=== PATIENT | female | born 1945 | race Caucasian/White ===

== ENCOUNTER → 2016-10-11 | Outpatient (REF) | payer MEDICARE, BC ==
[2016-10-11 14:35] LABS: URIC ACID 2.7 MG/DL (2.6-6.0)
[2016-10-11 14:42] LABS: MEAN CORPUSCULAR HEMOGLOBIN 31.6 pg (27.0-33.0); MEAN CORPUSCULAR HGB CONC 32.6 g/dl (32.0-36.5); RED CELL DISTRIBUTION WIDTH 13.1 % (11.5-14.5); WHITE BLOOD COUNT 4.8 K/mm3 (4.0-10.0)
[2016-10-11 15:01] LABS: BASOPHILS 1 % (0-4); EOSINOPHILS 4 % (0-5)
[2016-10-11 15:29] LABS: ERYTHROCYTE SEDIMENTATION RATE 8 mm/hr (0-30)
[2016-10-13 00:07] LABS: Lyme Disease IgG/IgM Antibodie <0.91 ISR (0.00-0.90); Lyme Disease IgM Ab Quantitati <0.80 index (0.00-0.79); SJOGREN'S ANTI SS-A <0.2 AI (0.0-0.9); SJOGREN'S ANTI SS-B 2.3 AI (0.0-0.9)
== END ==
LOC: M LABDRAW1 13:46
PROVIDERS: ATTEND Physician Assistant Surgical
DX: M19.042 Primary osteoarthritis, left hand (principal); Z79.899 Other long term (current) drug therapy

== ENCOUNTER → 2020-09-20 | Outpatient (CLI) | payer MEDICARE, BC ==
--- NOTE | 2020-09-20 09:31 | REP ---
INDICATION: PAIN. COMPARISON: None. TECHNIQUE: Standing bilateral AP examination of the knees with three views of the right knee FINDINGS: There is minimal tricompartmental marginal osteophytosis with standing bilateral AP view showing mild medial compartmental narrowing. There is no toribio subchondral sclerosis. There is no fracture, dislocation, or subluxation. IMPRESSION: Early degenerative changes as described above. <Electronically signed by [place] > 09/20/20 0913
== END ==
LOC: M SOG 09:01
PROVIDERS: ATTEND Orthopaedic Surgery Adult Reconstructive Orthopaedic Surgery
DX: M25.561 Pain in right knee (principal); M17.0 Bilateral primary osteoarthritis of knee

== ENCOUNTER → 2020-12-14 | Outpatient (CLI) | payer MEDICARE, BC ==
--- NOTE | 2020-12-14 14:47 | REP ---
INDICATION: RT LETITIA PAIN UNSPEC INTERNAL DERANGEMENT. COMPARISON: None. TECHNIQUE: Sagittal spin-echo proton density, T2 STIR and T2 FLASH. Coronal spin-echo proton density and fat suppressed proton density. Axial fat suppressed proton density. FINDINGS: The anterior and posterior horns of the medial meniscus are within normal limits. Mild grade 1 signal changes are present. The anterior and posterior horns of the lateral meniscus are within normal limits. Grade 2 signal changes seen along the periphery anterior to posterior. The anterior and posterior cruciate ligaments are intact. The quadriceps and patellar tendons are intact. The medial and lateral collateral ligaments are intact. The medial and lateral patellar retinacula are intact. There is thinning and irregularity of all articular cartilages. Seen between the tendons of the medial head of the gastrocnemius muscle and the semimembranosus tendon there is an 8.9 by 1.4 by 3 cm sized septated fluid collection. IMPRESSION: 1. Degenerative type meniscal signal changes seen as described above. There is a possible subtle peripheral interstitial substance tear in the lateral meniscus as described above. 2. Large somewhat complex Young's cyst as described above. 3. Tricompartmental chondromalacia <Electronically signed by [place] > 12/14/20 [id number]
== END ==
LOC: M PLAIMG 13:24
PROVIDERS: ATTEND Orthopaedic Surgery Adult Reconstructive Orthopaedic Surgery
DX: M23.91 Unspecified internal derangement of right knee (principal); M71.21 Synovial cyst of popliteal space [Baker], right knee; M94.261 Chondromalacia, right knee

== ENCOUNTER 2024-02-10 08:56 | Inpatient (IN) | payer BC, MEDICARE ==
[~2024-02-10] VITALS: Ht 160 cm; Wt 60.6 kg
[2024-02-10 09:41] LABS: EOS # 0.1 10^3/uL (0.0-0.5); EOS % 1.7 % (0.0-3.0); HEMATOCRIT 39.9 % (36.0-47.0); HEMOGLOBIN 13.3 g/dl (12.0-15.5); LYMPH # 1.2 10^3/uL (1.5-5.0); LYMPH % 28.7 % (24.0-44.0); MEAN CORPUSCULAR HEMOGLOBIN 30.9 pg (27.0-33.0); MEAN CORPUSCULAR HGB CONC 33.3 g/dl (32.0-36.5); MEAN CORPUSCULAR VOLUME 92.6 fl (80.0-96.0); MONO # 0.5 10^3/uL (0.0-0.8); MONO % 11.6 % (2.0-8.0); NEUTROPHILS # 2.4 10^3/uL (1.5-8.5); NEUTROPHILS % 56.8 % (36.0-66.0); PLATELET COUNT, AUTOMATED 255 10^3/uL (150-450); RED BLOOD COUNT 4.31 10^6/uL (4.00-5.40); WHITE BLOOD COUNT 4.2 10^3/uL (4.0-10.0)
[2024-02-10] MEDS ORDERED: VITA500C24 PO (10:09)
[2024-02-10] MEDS ORDERED: ALEN70TA82 PO (10:09)
[2024-02-10] MEDS ORDERED: RA M500C PO (10:09)
[2024-02-10] MEDS ORDERED: CALCTAB41 PO (10:09)
[2024-02-10] MEDS ORDERED: TRAV2.5D OU (10:09)
[2024-02-10] MEDS ORDERED: VITA-148 PO (10:09)
[2024-02-10] MEDS ORDERED: LEVO25TA5 PO (10:09)
[2024-02-10] MEDS ORDERED: LEVO50TA5 PO (10:09)
[2024-02-10 10:10] LABS: BLOOD UREA NITROGEN 12 MG/DL (9-23); CALCIUM LEVEL 9.1 MG/DL (8.3-10.6); CARBON DIOXIDE LEVEL 27 MMOL/L (20-31); CHLORIDE LEVEL 109 MMOL/L (98-107); CREATININE FOR GFR 0.64 MG/DL (0.55-1.30); GLOMERULAR FILTRATION RATE > 60.0 (>39); GLUCOSE, FASTING 100 MG/DL (74-106); MAGNESIUM LEVEL 2.3 MG/DL (1.8-2.4); POTASSIUM SERUM 4.5 MMOL/L (3.5-5.1); SODIUM LEVEL 140 MMOL/L (136-145)
[2024-02-10 10:12] LABS: FREE T4 1.54 NG/DL (0.89-1.76); THYROID STIMULATING HORMONE 3.179 uIU/ML (0.55-4.78)
[2024-02-10 12:27] LABS: IONIZED CALCIUM 4.7 MG/DL (4.5-5.3)
[2024-02-10 13:02] LABS: CK-MB VALUE MASS < 1.0 NG/ML (<3.6)
[2024-02-10 13:04] LABS: ALBUMIN 3.3 G/DL (3.2-5.2); ALKALINE PHOSPHATASE 64 U/L (35-104); ALT/SGPT 26 U/L (7.0-40); AST/SGOT 25 U/L (<34); BILIRUBIN,DIRECT 0.2 MG/DL (<0.4); CPK CREATINE PHOSPHOKINASE 66 U/L (34-145); MAGNESIUM LEVEL 2.2 MG/DL (1.8-2.4); MB/CK RELATIVE INDEX 1.51 (< OR =4); TOTAL PROTEIN 6.1 G/DL (5.7-8.2)
[2024-02-10] MEDS: NS 1,000 ML IV ONE (13:45)
[2024-02-10] MEDS ORDERED: ACET-897 PO (14:17)
[2024-02-10] MEDS ORDERED: HOME MED LIST COMPLETE! XX SCH (14:20)
[2024-02-10 15:47] VITALS: BP_SYST 130; BP_SYST 141; BP_SYST 144; BP_DIAS 58; BP_DIAS 63; BP_DIAS 67
[2024-02-10 15:52] VITALS: BP 130/58; TEMP 97; O2SAT 98
[2024-02-10 17:55] LABS: IONIZED CALCIUM 4.6 MG/DL (4.5-5.3)
[2024-02-10 18:25] LABS: CK-MB VALUE MASS < 1.0 NG/ML (<3.6); MAGNESIUM LEVEL 2.1 MG/DL (1.8-2.4)
[2024-02-10 18:27] LABS: CPK CREATINE PHOSPHOKINASE 65 U/L (34-145); MB/CK RELATIVE INDEX 1.53 (< OR =4)
[2024-02-10 19:01] LABS: AMPHETAMINES LEVEL URINE NEGATIVE (NEGATIVE); BARBITURATES URINE NEGATIVE (NEGATIVE); BENZODIAZEPINES URINE NEGATIVE (NEGATIVE); CANNABINOIDS URINE NEGATIVE (NEGATIVE); COCAINE METABOLITE URINE NEGATIVE (NEGATIVE); METHADONE URINE NEGATIVE (NEGATIVE); OPIATES URINE NEGATIVE (NEGATIVE); PHENCYCLIDINE URINE NEGATIVE (NEGATIVE)
[2024-02-10 20:59] VITALS: BP 114/55; TEMP 98.1; O2SAT 97
[2024-02-10] MEDS: CARVedilol 3.125 MG TAB PO SCH (21:06)
[2024-02-11 00:17] LABS: IONIZED CALCIUM 4.7 MG/DL (4.5-5.3)
[2024-02-11 00:27] VITALS: BP 118/86; TEMP 98.1; O2SAT 96
[2024-02-11 00:54] LABS: MAGNESIUM LEVEL 2.2 MG/DL (1.8-2.4)
[2024-02-11 00:55] LABS: CK-MB VALUE MASS < 1.0 NG/ML (<3.6)
[2024-02-11 00:56] LABS: CPK CREATINE PHOSPHOKINASE 52 U/L (34-145); MB/CK RELATIVE INDEX 1.92 (< OR =4)
[2024-02-11 03:47] VITALS: BP 125/56; TEMP 97.4; O2SAT 97
[2024-02-11 06:55] LABS: IONIZED CALCIUM 4.7 MG/DL (4.5-5.3)
[2024-02-11 07:07] LABS: HEMATOCRIT 37.3 % (36.0-47.0); HEMOGLOBIN 12.4 g/dl (12.0-15.5); MEAN CORPUSCULAR HEMOGLOBIN 30.7 pg (27.0-33.0); MEAN CORPUSCULAR HGB CONC 33.2 g/dl (32.0-36.5); MEAN CORPUSCULAR VOLUME 92.3 fl (80.0-96.0); PLATELET COUNT, AUTOMATED 250 10^3/uL (150-450); RED BLOOD COUNT 4.04 10^6/uL (4.00-5.40); WHITE BLOOD COUNT 3.7 10^3/uL (4.0-10.0)
[2024-02-11 07:30] LABS: CK-MB VALUE MASS < 1.0 NG/ML (<3.6); MAGNESIUM LEVEL 2.2 MG/DL (1.8-2.4)
[2024-02-11 07:31] LABS: CPK CREATINE PHOSPHOKINASE 51 U/L (34-145); MB/CK RELATIVE INDEX 1.96 (< OR =4)
[2024-02-11 07:32] LABS: BLOOD UREA NITROGEN 11 MG/DL (9-23); CARBON DIOXIDE LEVEL 25 MMOL/L (20-31); CHLORIDE LEVEL 110 MMOL/L (98-107); CHOLESTEROL LEVEL 215 MG/DL (<200); CHOLESTEROL RISK RATIO 2.66 (<5); CREATININE FOR GFR 0.66 MG/DL (0.55-1.30); GLOMERULAR FILTRATION RATE > 60.0 (>39); GLUCOSE, FASTING 95 MG/DL (74-106); HDL CHOLESTEROL 80.6 MG/DL (>40); LDL CHOLESTEROL 119.2 MG/DL (<100); NON-HDL-C 134.4 MG/DL; POTASSIUM SERUM 4.4 MMOL/L (3.5-5.1); SODIUM LEVEL 139 MMOL/L (136-145); TRIGLYCERIDES LEVEL 76 MG/DL (<150)
[2024-02-11 07:37] VITALS: BP 100/56; TEMP 98; O2SAT 97
[2024-02-11] MEDS ORDERED: ISOVUE-370 76% 100ML VIAL As Ordered ONE (08:12)
[2024-02-11] MEDS ORDERED: ALPRAZolam 0.25 MG TAB PO PRN (08:15)
[2024-02-11 08:19] VITALS: BP 100/56
[2024-02-11] MEDS ORDERED: ACETAMINOPHEN 500 MG TAB PO PRN (10:50)
[2024-02-11] MEDS ORDERED: LEVOTHYROXINE 50MCG TABLET (0.05MG) PO SCH (10:50)
[2024-02-11] MEDS: ASCORBIC ACID 500 MG TAB PO SCH (11:33)
[2024-02-11] MEDS: LEVOTHYROXINE 62.5MCG PER 1/2 TAB (0.0625MG) PO SCH (11:33)
== END 2024-02-11 12:05 | disposition home or self-care (01) | DRG 310 ==
LOC: M ED 08:56 → M ED INP 11:45 → M PCU 14:16
PROVIDERS: ADMIT General Practice; ATTEND General Practice
DX: I47.19 Other supraventricular tachycardia (principal); R55 Syncope and collapse; I49.3 Ventricular premature depolarization; E03.9 Hypothyroidism, unspecified; M81.0 Age-related osteoporosis without current pathological fracture; Z88.0 Allergy status to penicillin; Z88.2 Allergy status to sulfonamides; Z88.8 Allergy status to other drugs, medicaments and biological substances; Z79.899 Other long term (current) drug therapy; Z96.652 Presence of left artificial knee joint; Z85.828 Personal history of other malignant neoplasm of skin